=== PATIENT | female | born 1990 | race Caucasian/White ===

== ENCOUNTER 2018-07-26 20:00 | Emergency (ER) | payer BC ==
[2018-07-26] MEDS ORDERED: ONDANSETRON ODT 8 MG TAB SL ONE (20:20)
[2018-07-26] MEDS ORDERED: PROMETHAZINE HCL INJ 25 MG in SODIUM CHLORIDE 0.9% 50ML 50 ML IVPB ONE (20:20)
[2018-07-26] MEDS ORDERED: SODIUM CHLORIDE 0.9% 1000ML 1,000 ML IVS ONE (20:20)
[2018-07-26 20:21] VITALS: O2SAT 99
[2018-07-26] MEDS ORDERED: PROMETHAZINE HCL INJ 25 MG/ML VIAL ONE (20:22)
[2018-07-26] MEDS ORDERED: KETOROLAC TROMETHAMINE INJ 30 MG/ML VIAL IM ONE (20:22)
[2018-07-26] MEDS ORDERED: SODIUM CHLORIDE 0.9% 50ML 50 ML ONE (20:22)
[2018-07-26] MEDS ORDERED: MORPHINE SULFATE INJ 10 MG/ML VIAL ONE (20:38)
[2018-07-26] MEDS ORDERED: MORPHINE SULFATE INJ 10 MG/ML VIAL IV ONE (20:42)
--- NOTE | 2018-07-26 21:06 | RAD ---
EXAM: Abdomen Series CLINICAL INDICATION: 27-year-old female with severe abrupt lower abdominal pain with nausea and vomiting. TECHNIQUE: Single view, PA chest was obtained. Two views of the abdomen were obtained in upright and supine positioning. COMPARISON: None. FINDINGS: Chest: Unremarkable cardiac and mediastinal silhouette. Heart size is normal. Lungs are clear without focal opacity, pneumothorax or pleural effusions. The visualized bones are within normal limits. Abdomen: Diffuse paucity of gas within the small and large bowel. No free air is identified. Large volume of fecal content present throughout the pelvis raising the question of fecal stasis or constipation. Single air-filled loop of nonspecific small bowel stomach within the LEFT hemiabdomen. Punctate focus of calcification present within the inferior pole of the LEFT kidney raising the question of nonobstructing calculus. The osseous structures are within normal limits. IMPRESSION: 1. No acute cardiopulmonary abnormalities. 2. Nonspecific abdominal bowel gas pattern. 3. Punctate focus of calcification present within the inferior pole of the LEFT kidney raising the question of nonobstructing calculus. Electronically signed by: Opal Zhu MD 07/26/2018 9:02 PM CDT
[2018-07-26] MEDS ORDERED: cefTRIAXone SODIUM 1 GM in SODIUM CHL 0.9% 50ML MIN-BAG+ 50 ML IVPB ONE (21:30)
--- NOTE | 2018-07-26 21:36 | CT ---
EXAM DESCRIPTION: Abdoment/Pelvis w/o Contrast CLINICAL HISTORY: 27 years Female acute lower abd pain COMPARISON: Radiograph of the abdomen performed on the same day. TECHNIQUE: Images were obtained in axial, sagittal, and coronal planes. No intravenous contrast was administered. This exam was performed according to our departmental dose-optimization program which includes use of Automated Exposure Control, adjustment of the mA and/or kV according to patient size and/or use of iterative reconstruction technique. FINDINGS: 6 mm calculus distal right ureter with associated mild to moderate right hydronephrosis and hydroureter. Additional 4 mm calcification posterior to this finding. It is difficult to determine whether the second calcification represents a vascular calcification or additional ureteral calculus. Right extrarenal pelvis noted. Punctate nonobstructing calcification inferior left kidney. No hydronephrosis on left. Renal medullary calcifications bilaterally likely medullary sponge kidneys. Unremarkable bladder. No abnormality involving the liver, spleen, pancreas, gallbladder, or adrenal glands bilaterally. No dilatation abdominal aorta. No adenopathy or abnormal fluid collections seen. Appendix not well identified however no secondary signs for appendicitis. Moderate constipation. No bowel obstruction, perforation, or inflammation. No abnormality lower lungs bilaterally. No acute osseous abnormality. IMPRESSION: 6 mm calcification right pelvis likely distal ureteral calculus. Associated mild to moderate right hydronephrosis and hydroureter. Additional 4 mm calcification within the pelvis possibly additional ureteral calculus versus vascular calcification. Follow-up imaging utilizing intravenous contrast be helpful to further characterize these findings. 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 Punctate nonobstructing calcification inferior left kidney. Electronically signed by: Ana Maria Waller MD 07/26/2018 9:33 PM CDT
[2018-07-26] MEDS ORDERED: cefTRIAXone SODIUM 1 GM VIAL ONE (21:40)
[2018-07-26] MEDS ORDERED: SODIUM CHL 0.9% 50ML MIN-BAG+ 50 ML IVPB ONE (21:42)
[2018-07-26 22:47] VITALS: BP 110/64
--- NOTE | 2018-07-26 22:50 | ED.PDOC ---
History of Present Illness - General Chief Complaint: Abdominal Pain Stated Complaint: mid low abd pain radiates to back Time Seen by Provider: 07/26/18 20:03 Source: patient Exam Limitations: no limitations - History of Present Illness Initial Comments: the patient's 27-year-old female presenting to the emergency room with acute onset severe lower abdominal pain a little more on the right than the left. There is some radiation to the back. She was feeling fine immediately prior to that. No vaginal discharge. No dysuria. Severe cramping. She did have a couple of episodes of nausea and vomiting. She did have some diaphoresis. Timing/Duration: 1 hour Severity: severe Improving Factors: nothing Worsening Factors: nothing Associated Symptoms: diaphoresis, loss of appetite, nausea/vomiting Allergies/Adverse Reactions: Allergies NO KNOWN ALLERGY Allergy (Verified 07/26/18 20:15) Home Medications: Ambulatory Orders Ciprofloxacin [Cipro] 500 mg PO BID #14 tab 07/26/18 Tramadol HCl 50 mg PO Q8HR PRN #20 tab 07/26/18 Review of Systems - Review of Systems Constitutional: States: no symptoms reported EENTM: States: no symptoms reported Respiratory: States: no symptoms reported Cardiology: States: no symptoms reported Gastrointestinal/Abdominal: States: abdominal pain, nausea, vomiting Genitourinary: States: no symptoms reported Musculoskeletal: States: see HPI Skin: States: no symptoms reported Neurological: States: no symptoms reported Endocrine: States: no symptoms reported All other Systems: No Change from Baseline Past Medical History (General) - Patient Medical History Hx Seizures: No Hx Stroke: No Hx Dementia: No Hx Asthma: No Hx of COPD: No Hx Cardiac Disorders: No Hx Congestive Heart Failure: No Hx Pacemaker: No Hx Hypertension: No Hx Thyroid Disease: No Hx Diabetes: No Hx Gastroesophageal Reflux: No Hx Renal Disease: No Hx of HIV: No Hx MRSA: No Surgical History: no surgical history - Social History Hx Tobacco Use: No Hx Alcohol Use: Yes Hx Substance Use: No Hx Substance Use Treatment: No Hx Depression: No - Female History Hx Last Menstrual Period: 07/07/18 Family Medical History - Family History Mother Family History: Unknown Physical Exam - Physical Exam General Appearance: Alert, Obvious distress Eye Exam: bilateral normal Ears, Nose, Throat: hearing grossly normal, normal ENT inspection Neck: full range of motion, supple Respiratory: lungs clear, normal breath sounds, no respiratory distress, no accessory muscle use Cardiovascular/Chest: normal peripheral pulses, regular rate, rhythm, no edema Peripheral Pulses: radial,right: 2+, radial,left: 2+, dorsalis pedis,right: 2+, dorsalis pedis,left: 2+ Gastrointestinal/Abdominal: non tender, soft Rectal Exam: deferred Back Exam: no CVA tenderness, no vertebral tenderness Extremity: normal range of motion, non-tender, normal inspection, no pedal [place] ma, normal capillary refill 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 She has received several pain medications, IV fluids as well. Due to white blood cells in her urine she was given a dose of Rocephin and will be placed on ciprofloxacin for the next 7 days. She needs to increase her fluid intake and she can take Motrin as needed for discomfort. She does need to follow up with urology in the next week or so. A copy of her CT scan was given to her. ER warnings are given for any significant worsening. The patient was given tramadol additionally for as needed use. - Results/Orders Results/Orders: 07/26/18 20:22 Urine Culture Stat Laboratory Results - last 24 hr 07/26/18 07/26/18 07/26/18 20:20 20:22 20:26 WBC RBC Hgb Hct MCV MCH MCHC RDW Plt Count MPV Absolute Neuts (auto) Absolute Lymphs (auto) Absolute Monos (auto) Absolute Eos (auto) Absolute Basos (auto) Neutrophils % Lymphocytes % Monocytes % Eosinophils % Basophils % D-Dimer, Quantitative Sodium 140 Potassium 3.4 L Chloride 105 Carbon Dioxide 25 Anion Gap 13.4 BUN 24 H Creatinine 0.91 BUN/Creatinine Ratio 26.4 H Random Glucose 110 H Serum Osmolality 284.1 Lactic Acid Calcium 9.3 Magnesium 1.8 Total Bilirubin 0.4 AST 20 ALT 13 Alkaline Phosphatase 52 Creatine Kinase 145 H CK-MB (CK-2) 2.6 CK-MB (CK-2) % Not Reportable Troponin I < 0.02 Serum Total Protein 7.4 Albumin 4.0 Globulin 3.4 Albumin/Globulin Ratio 1.2 Amylase 98 Lipase 62 H Urine Color Yellow Urine Appearance Sl cloudy Urine pH 7.0 Ur Specific [place] 1.025 Urine Protein 30 Urine Glucose (UA) Negative Urine Ketones Negative Urine Blood Small H Urine Nitrite Negative Urine Bilirubin Negative Urine Urobilinogen 0.2 Ur Leukocyte Esterase Trace H Urine RBC 3-5 H Urine WBC 30-40 H Ur Epithelial Cells 1-3 Amorphous Sediment 1+ Urine Bacteria 1+ Urine Mucus Trace Urine HCG, Qual Negative 07/26/18 07/26/18 07/26/18 20:26 20:26 20:26 WBC 6.9 RBC 4.85 Hgb 14.6 Hct 42.7 MCV 88.2 MCH 30.1 MCHC 34.2 RDW 13.4 Plt Count 190 MPV 8.8 Absolute Neuts (auto) 3.70 Absolute Lymphs (auto) 2.60 Absolute Monos (auto) 0.50 Absolute Eos (auto) 0.10 Absolute Basos (auto) 0.00 Neutrophils % 54.3 Lymphocytes % 37.3 Monocytes % 6.7 Eosinophils % 1.1 Basophils % 0.6 D-Dimer, Quantitative 0.38 Sodium Potassium Chloride Carbon Dioxide Anion Gap BUN Creatinine BUN/Creatinine Ratio Random Glucose Serum Osmolality Lactic Acid 0.5 Calcium Magnesium Total Bilirubin AST ALT Alkaline Phosphatase Creatine Kinase CK-MB (CK-2) CK-MB (CK-2) % Troponin I Serum Total Protein Albumin Globulin Albumin/Globulin Ratio Amylase Lipase Urine Color Urine Appearance Urine pH Ur Specific [place] Urine Protein Urine Glucose (UA) Urine Ketones Urine Blood Urine Nitrite Urine Bilirubin Urine Urobilinogen Ur Leukocyte Esterase Urine RBC Urine WBC Ur Epithelial Cells Amorphous Sediment Urine Bacteria Urine Mucus Urine HCG, Qual acute abdominal series shows some low constipation. CT scan abdomen and pelvis shows mild hydroureter on the right side with a distal 6 mm obstructing stone and the more proximal 4 mm stone. There is also some indication of medullary sponge kidney. Departure - Departure Clinical Impression: Ureterolithiasis Disposition: Discharge to Home or Self Care Condition: Fair Departure Forms: ED Discharge - Pt. Copy, Patient Portal Self Enrollment Instructions: Kidney Stones (DC) Diet: regular diet Activity: increase activity as tolerated Prescriptions: Tramadol HCl 50 mg PO Q8HR PRN #20 tab PRN Reason: Moderate To Severe Pain Ciprofloxacin [Cipro] 500 mg PO BID #14 tab Home Medications: Ambulatory Orders Ciprofloxacin [Cipro] 500 mg PO BID #14 tab 07/26/18 Tramadol HCl 50 mg PO Q8HR PRN #20 tab 07/26/18 Additional Instructions: the patient is 27-year-old female presenting to the emergency room secondary to right-sided ureterolithiasis causing severe acute pain. She has received several pain medications, IV fluids as well. Due to white blood cells in her urine she was given a dose of Rocephin and will be placed on ciprofloxacin for the next 7 days. She needs to increase her fluid intake and she can take Motrin as needed for discomfort. She does need to follow up with urology in the next week or so. A copy of her CT scan was given to her. ER warnings are given for any significant worsening. The patient was given tramadol additionally for as needed use.
[2018-07-26 23:02] VITALS: TEMP 98.9
== END 2018-07-26 23:03 | disposition home or self-care (01) ==
LOC: ER 20:00
DX: N13.2 Hydronephrosis with renal and ureteral calculous obstruction (principal); R11.2 Nausea with vomiting, unspecified
CPT/HCPCS: 36415; 74019; 74176; 80053; 81001; 81025; 82150; 82550; 82553; 83605; 83690; 83735; 84484; 85025; 85379; 87086; A4216; J0696; J1885; J2270; J2550; J7030; J7050